=== PATIENT | male | born 1980 | race Caucasian/White ===

== ENCOUNTER 2023-08-16 17:11 | Emergency (ER) | payer MEDICAID, SELFPAY ==
[2023-08-16 17:17] VITALS: BP 132/88; PULSE 80; RESP 20; TEMP 36.5; O2SAT 96; BMI 25.8
--- NOTE | 2023-08-16 17:39 | ED.HA ---
HPI - Headache General Chief Complaint: Headache/Migraine Stated Complaint: Migraine Time Seen by Provider: 08/16/23 17:25 History of Present Illness HPI Narrative: This 43-year-old male has history of migraine-type headaches and comes in with 1 that is more persistent and severe. He does take some medications for treating migraines. He denies having any neurologic symptoms. He does report some light sensitivity and nausea. He states that he has been working over 80 hours a week between 2 or 3 different jobs. Related Data Allergies Allergy/AdvReac Type Severity Reaction Status Date / Time No Known Drug Allergies Allergy Verified 08/16/23 17:16 Review of Systems Status of ROS: Reports: 10 or more systems reviewed and unremarkable except as noted in History and below Narrative: Constitutional: No fevers, no weight gain or loss. Eyes: No discharge. No vision changes. HENT: No congestion, no sore throat, no ear pain. Cardiovascular: No chest pain, no palpitations. Respiratory: No shortness of breath, no wheezes, no cough. Gastrointestinal: No abdominal pain, no vomiting, no diarrhea. Genitourinary: No dysuria, no hematuria. Musculoskeletal: Normal range of motion. Skin: No rashes, no pruritis. Neurological: No dizziness, weakness, sensory change, speech change. Endo/Heme/Allergies: No bruising or bleeding. No polydipsia. Pysch: no suicidality, no anxiety, no insomnia. All other systems reviewed and are negative. PFS PFS Social History Smoking Status: Never smoker Do you use any of these nicotine containing products: None Second hand tobacco smoke exposure: No How often do you have a drink containing alcohol: never How often do you have six or more drinks on one occasion: Never AUDIT-C Alcohol total score: 0 Non-prescribed substance use: denies use service: No Exam Narrative: Exam Narrative: Constitutional: Well-developed, well-nourished, no acute distress. HEENT: Normocephalic, atraumatic. Neck: Normal range of motion. Nontender. Supple. Heart: Regular. No murmurs. Normal rate. Intact distal pulses. Lungs: Clear to auscultation. No chest discomfort. No wheezes, rhonchi, or rales. Abdomen: Normal bowel sounds. Nontender. No rebound tenderness. Genitalia: Deferred. Back: No midline tenderness. Normal range of motion. Extremities: Normal range of motion. No injury. Skin: Intact. No rash. Warm. No erythema or pallor. Neurologic: No altered sensation. No weakness. Alert and oriented. Psychiatric: No suicidality. No anxiety or depression. No insomnia. Nursing notes and vitals signs are reviewed. Const: Vital Signs, click to edit/add: Vital Signs - 24 hr 08/16/23 17:17 Temperature 97.7 F Pulse Rate [Pulse Oximeter] 80 Respiratory Rate 20 Blood Pressure [Ri t Upper Arm] 132/88 Pulse Oximetry 96 Oxygen Delivery Me thod Room Air Course Vital Signs Vital signs: Initial Vital Signs Temperature 97.7 F 08/16/23 17:17 Temperature Source Temporal Artery Scan 08/16/23 17:17 Pulse Rate 80 08/16/23 17:17 Pulse Rhythm Regular 08/16/23 17:17 Respiratory Rate 20 08/16/23 17:17 Blood Pressure 132/88 08/16/23 17:17 Blood Pressure Mean 102 08/16/23 17:17 Blood Pressure Position Sitting 08/16/23 17:17 Pulse Oximetry 96 08/16/23 17:17 Oxygen Delivery Method Room Air 08/16/23 17:17 Vital Signs Temperature 97.7 F 08/16/23 17:17 Pulse Rate 80 08/16/23 17:17 Respiratory Rate 20 08/16/23 17:17 Blood Pressure 132/88 08/16/23 17:17 Pulse Oximetry 96 08/16/23 17:17 Oxygen Delivery Method Room Air 08/16/23 17:17 Temperature 97.7 F 08/16/23 17:17 Pulse Rate 80 08/16/23 17:17 Respiratory Rate 20 08/16/23 17:17 Blood Pressure 132/88 08/16/23 17:17 Pulse Oximetry 96 08/16/23 17:17 Oxygen Delivery Method Room Air 08/16/23 17:17 Medications Administered Medications: Generic Name Dose Route Start Last Admin Trade Name Freq PRN Reason Stop Dose Admin Sodium Chloride 1,000 mls @ 1,000 mls/hr 08/16/23 18:45 08/16/23 19:15 0.9 % Sodium Chloride 1000 Ml IV 08/16/23 19:44 Infused .Q1H [facility] Infusion Discontinued Medications Generic Name Dose Route Start Last Admin Trade Name Freq PRN Reason Stop Dose Admin Diphenhydramine HCl 50 mg 08/16/23 17:38 08/16/23 18:14 Diphenhydramine 50 Mg/Ml Inj IVP 08/16/23 17:39 50 mg ONCE ONE Administration Ketorolac Tromethamine 30 mg 08/16/23 17:38 08/16/23 18:15 Ketorolac 30 Mg/Ml Inj IVP 08/16/23 17:39 30 mg ONCE ONE Administration Methylprednisolone Sodium Succinate 125 mg 08/16/23 17:38 08/16/23 18:15 Methylprednisolone Sod Succ 62.5 Mg/Ml (125) IVP 08/16/23 17:39 125 mg ONCE ONE Administration Ondansetron HCl 4 mg 08/16/23 17:38 08/16/23 18:15 Ondansetron 2 Mg/Ml Inj IVP 08/16/23 17:39 4 mg ONCE ONE Administration MDM - Headache MDM Narrative Medical decision making narrative: This patient comes in with migraine headache as described above. An IV was established where he received Toradol 30 mg, Zofran 4 mg, Benadryl 50 mg, and Solu-Medrol 125 mg. This brought sufficient relief to his symptoms. He is okay to be discharged home. A return to work note is provided. Discharge Plan Discharge Clinical Impression: Migraine Patient Disposition: Home, Self-Care Condition: Improved Additional Instructions: Continue current plans. Follow up with MD return if worsening. Follow Up/Referrals: Provider,Not a Local [Primary Care Provider] - Stand Alone Forms: [employer] Info Instructions
[2023-08-16] MEDS: diphenhydrAMINE 50 MG/ML inj IVP (18:14)
[2023-08-16] MEDS: ONDANSETRON 2 MG/ML inj 4 MG IVP (18:15)
[2023-08-16] MEDS: METHYLPREDNISOLONE SOD SUCC 62.5 MG/ML (125) 125 MG IVP (18:15)
[2023-08-16] MEDS: KETOROLAC 30 MG/ML inj IVP (18:15)
[2023-08-16] MEDS: 0.9 % SODIUM CHLORIDE 1000 ml 1,000 ML IV (18:15)
== END 2023-08-16 19:45 | disposition home or self-care (01) ==
PROVIDERS: Emergency Provider Emergency Medicine Emergency Medical Services
DX: G43.909 Migraine, unspecified, not intractable, without status migrainosus (principal)
CPT/HCPCS: 96374; 96375; 99283; 99284; J1200; J1885; J2405; J2919; J7030